=== PATIENT | male | born 1955 | race American Indian/Alaskan Native ===

== ENCOUNTER 2020-11-23 13:09 | Outpatient (CLI) | payer OTHER ==
--- NOTE | 2020-11-23 15:10 | XRay Report ---
Cervical spine 3 views Indication: NECK PAIN Findings: There is no fracture, subluxation, or other acute radiographic abnormality of the cervical spine. There is discogenic degenerative change at C3-4, C4-5, C5-6 and C6-7. Prevertebral soft tissues are u nremarkable. Mild atherosclerotic calcifications are noted in the carotid arteries. Signer Name: Ede Martinez MD Signed: 11/23/2020 3:05 PM Workstation Name: [id number]
--- NOTE | 2020-11-23 15:29 | XRay Report ---
LEFT SHOULDER 3 VIEWS INDICATION: LEFT SHOULDER PAIN. COMPARISON: No relevant prior imaging study available. FINDINGS: No acute skeletal abnormality. There is mild acromioclavicular degenerative change. IMPRESSION: 1. No acute findings. RIGHT HAND 3 VIEWS INDICATION: Right hand pain. COMPARISON: No relevant prior imaging study available. FINDINGS: No acute skeletal abnormality. There is a healed little finger metacarpal fracture. Mild osteoarthros is changes are noted. No radiographic evidence of inflammatory arthropathy. IMPRESSION: 1. No acute findings. Signer Name: Hossein Tony MD Signed: 11/23/2020 3:25 PM Workstation Name: [id number]
== END 2020-11-23 13:10 | disposition home or self-care (01) ==
LOC: XRAY 13:09
PROVIDERS: ATTEND Internal Medicine
DX: M50.31 Other cervical disc degeneration, high cervical region (principal); M25.512 Pain in left shoulder; M25.541 Pain in joints of right hand
CPT/HCPCS: 72040